=== PATIENT | male | born 1970 | race Caucasian/White ===

== ENCOUNTER 2024-04-19 11:23 | Inpatient (IN) ==
[2024-04-19] MEDS ORDERED: IOPAMIDOL 100 ML BOTTLE IV ONE (11:24)
[2024-04-19 12:05] LABS: Basophils # (Auto) 0 K/mcL (0.00-0.30); Basophils % (Auto) 0 % (0.0-2.0); Eosinophils # (Auto) 0.02 K/mcL (0.00-0.70); Eosinophils % (Auto) 0.3 % (0.0-7.0); Hematocrit 46.3 % (40.1-51.0); Hemoglobin 15.6 g/dL (13.7-17.5); Lymphocytes # (Auto) 0.62 K/mcL (1.50-4.80); Lymphocytes % (Auto) 9.5 % (15.5-49.0); Mean Cell Volume 92.2 fL (80.0-100.0); Mean Corpuscular HGB Conc 33.7 g/dL (31.0-36.0); Monocytes % (Auto) 7.7 % (1.0-12.0); Neutrophils % (Auto) 82.3 % (38.0-78.0); Platelet Count 178 K/mcL (140-440); RBC 5.02 M/mcL (4.63-6.08); Red Cell Distribution Width 15.4 % (11.5-14.5); WBC 6.5 K/mcL (4.5-11.0)
[2024-04-19 12:27] LABS: ALT/SGPT 8 U/L (<40); AST/SGOT 17 U/L (<40); Albumin 3.7 gm/dL (3.2-5.2); Albumin/Globulin Ratio 0.9 (1.0-2.3); Alkaline Phosphatase 106 U/L (39-117); Blood Urea Nitrogen 8 mg/dL (6-20); Calcium 8.8 mg/dL (8.6-10.4); Carbon Dioxide 27 mmol/L (22-30); Chloride 82 mmol/L (96-108); Globulin 3.9 gm/dL (2.2-3.7); Glomerular Filtration Rate 151; Glucose 104 mg/dL (70-105); Potassium 4.8 mmol/L (3.3-5.1); Sodium 121 mmol/L (133-145)
[2024-04-19] MEDS: KETOROLAC 15 MG/ML VIAL IV ONE (13:55)
[2024-04-19 14:10] LABS: Thyroid Stimulating Hormone 2.71 uIU/mL (0.27-5.01)
[2024-04-19] MEDS: IPRATROPIUM/ALBUTEROL 3 ML AMPUL.NEB NEB ONE (14:20)
[2024-04-19] MEDS ORDERED: MAG HYDROX/AL HYDROX/SIMETH 30 ML ORAL.SUSP PO PRN (15:10)
[2024-04-19] MEDS ORDERED: MAGNESIUM HYDROXIDE 30 ML ORAL.SUSP PO PRN (15:10)
[2024-04-19] MEDS ORDERED: ONDANSETRON 4 MG/2 ML VIAL IV PRN (15:10)
[2024-04-19] MEDS ORDERED: guaiFENesin/DEXTROMETHORPHAN 5ML UD CUP PO PRN (15:15)
[2024-04-19 15:24] LABS: Amphetamine Screen,Urine None detected; Barbiturate Screen,Urine None detected; Benzodiazepines Screen,Urine None detected; Cannabinoid Screen,Urine Suspect Positive; Cocaine Screen,Urine None detected; Fentanyl, Urine Screen None Detected; Opiate Screen,Urine None detected; Oxycodone, Urine Screen None detected; Phencyclidine Screen,Urine None detected
[2024-04-19] MEDS: cefTRIAXone 1 GM VIAL IV SCH (16:01)
[2024-04-19] MEDS: AZITHROMYCIN 500 MG in 0.9 % SODIUM CHLORIDE 250 ML IV SCH (16:02)
[2024-04-19] MEDS: ACETAMINOPHEN 325 MG TABLET PO PRN (17:24)
[2024-04-19] MEDS: oxyCODONE IR 5 MG TABLET PO PRN (17:25)
[2024-04-19] MEDS ORDERED: tiZANidine 4 MG TABLET PO PRN (19:18)
[2024-04-19] MEDS ORDERED: ALBUTEROL SULFATE 60 PUFF INHALER IH PRN (19:18)
[2024-04-19] MEDS: 0.9 % SODIUM CHLORIDE 10 ML SYRINGE IV SCH (19:59)
[2024-04-19] MEDS ORDERED: PROCHLORPERAZINE 10 MG/2 ML VIAL IV PRN (20:00)
[2024-04-19] MEDS: busPIRone 5 MG TABLET PO SCH (20:13)
[2024-04-19] MEDS: SENNOSIDES 1 TABLET PO SCH (20:13)
[2024-04-19] MEDS: QUEtiapine 100 MG TABLET PO SCH (20:13)
[2024-04-19] MEDS: GABAPENTIN 400 MG CAPSULE PO SCH (20:13)
[2024-04-19] MEDS: traZODone HCL 50 MG TABLET PO SCH (20:14)
[2024-04-19] MEDS: QUEtiapine 25 MG TABLET PO SCH (20:14)
[2024-04-19] MEDS: guaiFENesin 600 MG TAB.SR.12H PO SCH (20:14)
[2024-04-19] MEDS: IBUPROFEN 600 MG TABLET PO PRN (20:14)
[2024-04-19] MEDS: DOCUSATE SODIUM 100 MG CAPSULE PO SCH (20:14)
[2024-04-19 20:24] LABS: Blood Urea Nitrogen 8 mg/dL (6-20); Calcium 8.5 mg/dL (8.6-10.4); Carbon Dioxide 30 mmol/L (22-30); Chloride 85 mmol/L (96-108); Glomerular Filtration Rate 151; Glucose 109 mg/dL (70-105); Potassium 4.4 mmol/L (3.3-5.1); Sodium 124 mmol/L (133-145)
[2024-04-19] MEDS: BUDESONIDE 0.5 MG/2 ML AMPUL.NEB NEB SCH (20:33)
[2024-04-19] MEDS: ALBUTEROL SULFATE 2.5 MG/3 ML NEBULIZER NEB PRN (20:33)
[2024-04-19] MEDS: MUPIROCIN OINT 2% 22GM TOPICAL SCH (23:49)
[2024-04-20] MEDS: traMADol 50 MG TABLET PO PRN (01:07)
[2024-04-20] MEDS: LORazepam 0.5 MG TABLET PO ONE (07:32)
[2024-04-20 08:24] VITALS: TEMP 97.8
[2024-04-20 08:38] LABS: Blood Urea Nitrogen 7 mg/dL (6-20); Calcium 8.4 mg/dL (8.6-10.4); Carbon Dioxide 29 mmol/L (22-30); Chloride 83 mmol/L (96-108); Glomerular Filtration Rate 151; Glucose 132 mg/dL (70-105); Potassium 4.3 mmol/L (3.3-5.1); Sodium 122 mmol/L (133-145)
[2024-04-20 09:16] VITALS: O2SAT 95
[2024-04-20] MEDS: OMEPRAZOLE 20 MG CAPSULE PO SCH (10:19)
[2024-04-20] MEDS: ENOXAPARIN 40 MG/0.4 ML SYRINGE SQ SCH (10:20)
[2024-04-20] MEDS: NYSTATIN POWDER BOTTLE 15GM TOPICAL SCH (10:20)
[2024-04-20] MEDS: FLUTICASONE PROPIONATE SPRAY.NAS NS SCH (10:47)
[2024-04-20] MEDS ORDERED: SODIUM CHLORIDE 1 GM TABLET PO SCH (12:00)
[2024-04-20] MEDS ORDERED: MIRABEGRON 50 MG PO SCH (12:00)
== END 2024-04-20 13:10 | disposition left against medical advice (07) | DRG 189 ==
LOC: ED 11:23 → ICU 16:51
PROVIDERS: ADMIT Internal Medicine; ATTEND Internal Medicine

== ENCOUNTER 2024-04-21 19:26 | Inpatient (IN) ==
[2024-04-21] MEDS: 0.9 % SODIUM CHLORIDE 1,000 ML IV ONE (20:41)
[2024-04-21] MEDS: IPRATROPIUM/ALBUTEROL 3 ML AMPUL.NEB NEB ONE (20:43)
[2024-04-21 21:01] LABS: ABG Methemoglobin 0.3 % (0.4-1.5); Total Hemoglobin 15.4 gm/Dl (13.5-16.5); VBG Base Excess 5 (-2-3); VBG Oxygen Saturation 93.6 % (40.0-70.0); VBG PCO2 43.9 mmHg (41.0-51.0); VBG PH 7.45 U (7.32-7.42); VBG PO2 108.7 mmHg (25.0-40.0); VBG Total CO2 31.4 mmol/L (25.0-29.0)
[2024-04-21 21:05] LABS: Basophils # (Auto) 0.01 K/mcL (0.00-0.30); Basophils % (Auto) 0.2 % (0.0-2.0); Eosinophils # (Auto) 0 K/mcL (0.00-0.70); Eosinophils % (Auto) 0 % (0.0-7.0); Hematocrit 42.4 % (40.1-51.0); Hemoglobin 14.4 g/dL (13.7-17.5); Lymphocytes # (Auto) 0.34 K/mcL (1.50-4.80); Lymphocytes % (Auto) 5.5 % (15.5-49.0); Mean Cell Volume 91.4 fL (80.0-100.0); Mean Platelet Volume 8.7 fL (8.8-12.5); Monocytes # (Auto) 0.55 K/mcL (0.10-0.90); Monocytes % (Auto) 8.9 % (1.0-12.0); Neutrophils % (Auto) 85.1 % (38.0-78.0); Platelet Count 235 K/mcL (140-440); RBC 4.64 M/mcL (4.63-6.08); Red Cell Distribution Width 15.5 % (11.5-14.5); WBC 6.2 K/mcL (4.5-11.0)
[2024-04-21 21:26] LABS: ALT/SGPT 9 U/L (<40); AST/SGOT 20 U/L (<40); Albumin 3.3 gm/dL (3.2-5.2); Albumin/Globulin Ratio 0.9 (1.0-2.3); Alkaline Phosphatase 103 U/L (39-117); Blood Urea Nitrogen 4 mg/dL (6-20); Calcium 8.1 mg/dL (8.6-10.4); Carbon Dioxide 29 mmol/L (22-30); Chloride 85 mmol/L (96-108); Globulin 3.5 gm/dL (2.2-3.7); Glomerular Filtration Rate 151; Glucose 97 mg/dL (70-105); Potassium 4.1 mmol/L (3.3-5.1); Sodium 125 mmol/L (133-145)
[2024-04-21] MEDS: LORazepam 2 MG/ML VIAL IV PRN (21:31)
[2024-04-21] MEDS: methylPREDNISolone SOD SUCC 125 MG/2 ML VIAL IV ONE (21:45)
[2024-04-21] MEDS: LORazepam 2 MG/ML VIAL IV ONE (21:45)
[2024-04-21] MEDS: MIDAZOLAM 2 MG/2 ML VIAL IV ONE (21:53)
[2024-04-21] MEDS: ROCURONIUM 10 MG/ML ML IV ONE (22:45)
[2024-04-21] MEDS: KETAMINE 10 MG/ML ML IV ONE (22:45)
[2024-04-21] MEDS: 0.9 % SODIUM CHLORIDE 500 ML IV ONE (23:08)
[2024-04-21] MEDS: KETAMINE 100 MG/ML ML ONE (23:20)
[2024-04-21] MEDS: MIDAZOLAM 2 MG/2 ML VIAL ONE (23:23)
[2024-04-21] MEDS: DOPamine 400 MG in PREMIX 1 BAG IV SCH (23:30)
[2024-04-21] MEDS: PROPOFOL 1,000 MG in PREMIX 1 BAG IV SCH (23:43)
[2024-04-21] MEDS: PROPOFOL 100 ML IV ONE (23:43)
[2024-04-22] MEDS ORDERED: fentaNYL 100 MCG/2 ML VIAL IV PRN (00:33)
[2024-04-22] MEDS ORDERED: ONDANSETRON 4 MG/2 ML VIAL IV PRN ×2 (00:33→01:41)
[2024-04-22] MEDS ORDERED: IPRATROPIUM/ALBUTEROL 3 ML AMPUL.NEB NEB PRN (00:34)
[2024-04-22] MEDS: AZITHROMYCIN 500 MG in 0.9 % SODIUM CHLORIDE 250 ML IV ONE ×2 (01:00→02:11)
[2024-04-22] MEDS: HYDROmorphone 0.5 MG/0.5 ML SYRINGE IV PRN (01:01)
[2024-04-22 01:53] LABS: Appearance,Urine CLEAR (Clear); Bacteria,Urine FEW /hpf (0); Bilirubin,Urine Negative (Negative); Color,Urine YELLOW; Glucose,Urine (UA) Negative (Negative); Ketones,Urine 5 mg/dL (Negative); Leukocyte Esterase,Urine Negative /uL (Negative); Mucus,Urine FEW /hpf; Nitrate,Urine Negative (Negative); Protein,Urine 30 mg/dL (Negative); Specific Gravity,Urine 1.005 (1.000-1.035); Urine Amorphous Crystals FEW /hpf; Urine Blood Negative (Negative); Urine Hyaline Cast 6 /lph (0-2); Urine RBC 1 /hpf (0-3); Urine Squamous Epithelial Cell 0 /hpf (0-4); Urine WBC 7 /hpf (0-4); Urobilinogen,Urine Negative
[2024-04-22] MEDS: cefTRIAXone 2 GM in DEXTROSE 5% IN WATER 50 ML IV SCH ×2 (02:00→02:11)
[2024-04-22] MEDS: 0.9 % SODIUM CHLORIDE 250 ML IV SCH (02:11)
[2024-04-22] MEDS: cefTRIAXone 2 GM VIAL ONE (02:12)
[2024-04-22] MEDS: AZITHROMYCIN 500 MG VIAL IV ONE (02:12)
[2024-04-22] MEDS: ALBUTEROL SULFATE 2.5 MG/3 ML NEBULIZER ONE (02:13)
[2024-04-22] MEDS: PROPOFOL 100 ML IV ONE ×9 (02:44→23:11)
[2024-04-22] MEDS: cefTRIAXone 1 GM VIAL IV SCH (02:44)
[2024-04-22] MEDS: AZITHROMYCIN 500 MG in DEXTROSE 5% IN WATER 250 ML IV SCH (02:44)
[2024-04-22] MEDS: fentaNYL 100 MCG/2 ML VIAL IV PRN ×2 (02:47→11:35)
[2024-04-22] MEDS: ALBUTEROL SULFATE 2.5 MG/3 ML NEBULIZER NEB ONE (02:51)
[2024-04-22] MEDS: DEXMEDETOMIDINE 400 MCG in PREMIX 1 BAG IV SCH ×2 (03:15→15:27)
[2024-04-22] MEDS: PROPOFOL 1,000 MG in PREMIX 1 BAG IV ONE (03:40)
[2024-04-22] MEDS: DEXMEDETOMIDINE 100 ML IV ONE ×3 (03:40→23:43)
[2024-04-22] MEDS: fentaNYL 100 MCG/2 ML VIAL ONE ×3 (03:40→10:10)
[2024-04-22] MEDS: ALBUMIN HUMAN 25 GM/100 ML BAG IV ONE (04:30)
[2024-04-22] MEDS: ALBUMIN HUMAN 25 GM/100 ML BAG IV SCH (05:56)
[2024-04-22] MEDS: LACTATED RINGERS 1,000 ML IV SCH (05:56)
[2024-04-22] MEDS: 0.9 % SODIUM CHLORIDE 1,000 ML IV SCH (05:58)
[2024-04-22 06:11] LABS: Basophils # (Auto) 0 K/mcL (0.00-0.30); Basophils % (Auto) 0 % (0.0-2.0); Eosinophils # (Auto) 0 K/mcL (0.00-0.70); Eosinophils % (Auto) 0 % (0.0-7.0); Hematocrit 46.9 % (40.1-51.0); Hemoglobin 15.8 g/dL (13.7-17.5); Lymphocytes # (Auto) 0.29 K/mcL (1.50-4.80); Lymphocytes % (Auto) 7.6 % (15.5-49.0); Mean Cell Volume 92.5 fL (80.0-100.0); Mean Corpuscular HGB Conc 33.7 g/dL (31.0-36.0); Mean Platelet Volume 8.7 fL (8.8-12.5); Monocytes # (Auto) 0.16 K/mcL (0.10-0.90); Monocytes % (Auto) 4.2 % (1.0-12.0); Neutrophils % (Auto) 87.7 % (38.0-78.0); Platelet Count 226 K/mcL (140-440); RBC 5.07 M/mcL (4.63-6.08); Red Cell Distribution Width 15.6 % (11.5-14.5); WBC 3.8 K/mcL (4.5-11.0)
[2024-04-22 06:44] LABS: Blood Urea Nitrogen 6 mg/dL (6-20); Calcium 8.6 mg/dL (8.6-10.4); Carbon Dioxide 24 mmol/L (22-30); Chloride 87 mmol/L (96-108); Glomerular Filtration Rate 134; Glucose 129 mg/dL (70-105); Potassium 3.5 mmol/L (3.3-5.1); Sodium 131 mmol/L (133-145)
[2024-04-22] MEDS: 0.9 % SODIUM CHLORIDE 10 ML SYRINGE IV SCH (07:58)
[2024-04-22] MEDS: CHLORHEXIDINE GLUCONATE 15 ML UDC SWABMOUTH SCH ×2 (08:09)
[2024-04-22] MEDS: ENOXAPARIN 40 MG/0.4 ML SYRINGE SQ SCH (08:09)
[2024-04-22] MEDS: LORazepam 2 MG/ML VIAL IV PRN (08:18)
[2024-04-22] MEDS ORDERED: FAMOTIDINE/PF 20 MG/2 ML VIAL IV SCH ×2 (09:00)
[2024-04-22] MEDS: FAMOTIDINE/PF 20 MG/2 ML VIAL IV SCH (09:13)
[2024-04-22] MEDS: ACETYLCYSTEINE 800 MG/4 ML VIAL ONE (10:08)
[2024-04-22] MEDS: ACETYLCYSTEINE 800 MG/4 ML VIAL NEB SCH (10:09)
[2024-04-22] MEDS: IPRATROPIUM/ALBUTEROL 3 ML AMPUL.NEB NEB PRN (10:09)
[2024-04-22] MEDS: FUROSEMIDE 40 MG/4 ML VIAL IV SCH (15:48)
[2024-04-22] MEDS: AZITHROMYCIN 500 MG in 0.9 % SODIUM CHLORIDE 250 ML IV SCH (16:38)
[2024-04-22] MEDS: POTASSIUM CHLORIDE 10 MEQ/100 ML BAG IV SCH (21:24)
[2024-04-23 06:31] LABS: Basophils # (Auto) 0.02 K/mcL (0.00-0.30); Basophils % (Auto) 0.5 % (0.0-2.0); Eosinophils # (Auto) 0.02 K/mcL (0.00-0.70); Eosinophils % (Auto) 0.5 % (0.0-7.0); Hematocrit 40.9 % (40.1-51.0); Hemoglobin 13.7 g/dL (13.7-17.5); Lymphocytes # (Auto) 1.31 K/mcL (1.50-4.80); Lymphocytes % (Auto) 30.6 % (15.5-49.0); Mean Cell Volume 93.4 fL (80.0-100.0); Mean Corpuscular HGB Conc 33.5 g/dL (31.0-36.0); Mean Platelet Volume 8.6 fL (8.8-12.5); Monocytes # (Auto) 0.78 K/mcL (0.10-0.90); Monocytes % (Auto) 18.2 % (1.0-12.0); Platelet Count 171 K/mcL (140-440); RBC 4.38 M/mcL (4.63-6.08); Red Cell Distribution Width 15.6 % (11.5-14.5); WBC 4.3 K/mcL (4.5-11.0)
[2024-04-23 06:50] LABS: ALT/SGPT 6 U/L (<40); AST/SGOT 19 U/L (<40); Albumin 3.9 gm/dL (3.2-5.2); Albumin/Globulin Ratio 1.4 (1.0-2.3); Alkaline Phosphatase 69 U/L (39-117); Bilirubin,Direct 0.6 mg/dL (<0.3); Blood Urea Nitrogen 6 mg/dL (6-20); Calcium 8.6 mg/dL (8.6-10.4); Carbon Dioxide 27 mmol/L (22-30); Chloride 90 mmol/L (96-108); Globulin 2.8 gm/dL (2.2-3.7); Glomerular Filtration Rate 134; Glucose 107 mg/dL (70-105); Lactate Dehydrogenase 140 U/L (135-225); Phosphorous 1.8 mg/dL (2.5-4.5); Potassium 2.4 mmol/L (3.3-5.1); Sodium 132 mmol/L (133-145); Triglycerides 130 mg/dL (<150); Uric Acid 3.1 mg/dL (2.5-8.0)
[2024-04-23] MEDS: PROPOFOL 100 ML IV ONE ×5 (07:31→23:18)
[2024-04-23] MEDS: MAGNESIUM SULFATE 2 GM/50 ML BAG IV ONE (08:26)
[2024-04-23] MEDS: POTASSIUM CHLORIDE 10 MEQ/100 ML BAG IV SCH ×2 (08:39→12:24)
[2024-04-23] MEDS: DEXMEDETOMIDINE 100 ML IV ONE ×3 (08:47→20:12)
[2024-04-23] MEDS: POTASSIUM CHLORIDE 20 MEQ in DEXTROSE 5% IN WATER 250 ML IV SCH (11:25)
[2024-04-23] MEDS: 0.9 % SODIUM CHLORIDE 1,000 ML IV SCH (17:30)
[2024-04-23 19:39] LABS: Blood Urea Nitrogen 7 mg/dL (6-20); Calcium 8.6 mg/dL (8.6-10.4); Carbon Dioxide 26 mmol/L (22-30); Chloride 92 mmol/L (96-108); Glomerular Filtration Rate 134; Glucose 107 mg/dL (70-105); Potassium 4.2 mmol/L (3.3-5.1); Sodium 129 mmol/L (133-145)
[2024-04-23] MEDS: METOCLOPRAMIDE 10 MG/2 ML VIAL IV SCH (20:57)
[2024-04-24] MEDS: DEXMEDETOMIDINE 100 ML IV ONE ×3 (00:23→09:36)
[2024-04-24] MEDS: PROPOFOL 100 ML IV ONE ×2 (03:26→07:00)
[2024-04-24 06:08] LABS: Basophils # (Auto) 0.03 K/mcL (0.00-0.30); Basophils % (Auto) 0.5 % (0.0-2.0); Eosinophils # (Auto) 0.05 K/mcL (0.00-0.70); Eosinophils % (Auto) 0.8 % (0.0-7.0); Hematocrit 40.7 % (40.1-51.0); Hemoglobin 13.6 g/dL (13.7-17.5); Lymphocytes # (Auto) 1.27 K/mcL (1.50-4.80); Lymphocytes % (Auto) 19.7 % (15.5-49.0); Mean Cell Volume 94.7 fL (80.0-100.0); Mean Corpuscular HGB Conc 33.4 g/dL (31.0-36.0); Mean Platelet Volume 9.4 fL (8.8-12.5); Monocytes # (Auto) 0.82 K/mcL (0.10-0.90); Monocytes % (Auto) 12.7 % (1.0-12.0); Platelet Count 162 K/mcL (140-440); Red Cell Distribution Width 15.6 % (11.5-14.5); WBC 6.5 K/mcL (4.5-11.0)
[2024-04-24 06:17] LABS: Blood Urea Nitrogen 7 mg/dL (6-20); Calcium 8.1 mg/dL (8.6-10.4); Carbon Dioxide 24 mmol/L (22-30); Chloride 88 mmol/L (96-108); Glomerular Filtration Rate 134; Glucose 182 mg/dL (70-105); Potassium 3.5 mmol/L (3.3-5.1); Sodium 125 mmol/L (133-145)
[2024-04-24] MEDS: POTASSIUM CHLORIDE 10 MEQ/100 ML BAG IV SCH (13:16)
[2024-04-24] MEDS: PIPERACILLIN SODIUM/TAZOBACTAM 4.5 GM in DEXTROSE 5% IN WATER 100 ML IV SCH ×2 (13:16→17:06)
[2024-04-24] MEDS: MEROPENEM 1 GM in 0.9 % SODIUM CHLORIDE 50 ML IV SCH (13:51)
[2024-04-25 06:19] LABS: Phosphorous 3.8 mg/dL (2.5-4.5)
[2024-04-25 06:20] LABS: Basophils # (Auto) 0.03 K/mcL (0.00-0.30); Basophils % (Auto) 0.3 % (0.0-2.0); Eosinophils # (Auto) 0.06 K/mcL (0.00-0.70); Eosinophils % (Auto) 0.6 % (0.0-7.0); Hematocrit 43.1 % (40.1-51.0); Hemoglobin 13.7 g/dL (13.7-17.5); Lymphocytes # (Auto) 0.77 K/mcL (1.50-4.80); Lymphocytes % (Auto) 8.1 % (15.5-49.0); Mean Cell Volume 96.9 fL (80.0-100.0); Mean Corpuscular HGB Conc 31.8 g/dL (31.0-36.0); Mean Platelet Volume 8.9 fL (8.8-12.5); Monocytes # (Auto) 1.14 K/mcL (0.10-0.90); Monocytes % (Auto) 11.9 % (1.0-12.0); Neutrophils % (Auto) 78.9 % (38.0-78.0); Platelet Count 206 K/mcL (140-440); RBC 4.45 M/mcL (4.63-6.08); Red Cell Distribution Width 15.3 % (11.5-14.5); WBC 9.6 K/mcL (4.5-11.0)
[2024-04-25 07:13] LABS: Blood Urea Nitrogen 9 mg/dL (6-20); Calcium 8.7 mg/dL (8.6-10.4); Carbon Dioxide 29 mmol/L (22-30); Chloride 96 mmol/L (96-108); Glomerular Filtration Rate 134; Glucose 88 mg/dL (70-105); Potassium 2.7 mmol/L (3.3-5.1); Sodium 138 mmol/L (133-145)
[2024-04-25] MEDS: POTASSIUM CHLORIDE 10 MEQ/100 ML BAG IV SCH ×2 (08:23→14:29)
[2024-04-25] MEDS ORDERED: VANCOMYCIN 1,000 MG in 0.9 % SODIUM CHLORIDE 250 ML IV SCH (10:15)
[2024-04-25] MEDS ORDERED: VANCOMYCIN PER PHARMACY IV SCH (10:30)
[2024-04-25] MEDS: VANCOMYCIN 1,500 MG in 0.9 % SODIUM CHLORIDE 500 ML IV SCH (11:17)
[2024-04-25] MEDS: FUROSEMIDE 40 MG/4 ML VIAL IV SCH (14:14)
[2024-04-25] MEDS: HYDROcodone/APAP 5/325MG TABLET PO PRN (20:00)
[2024-04-25] MEDS: hydrALAZINE 20 MG/ML VIAL ONE (20:28)
[2024-04-25] MEDS: hydrALAZINE 20 MG/ML VIAL IV PRN (20:28)
[2024-04-26 05:45] LABS: Basophils # (Auto) 0.04 K/mcL (0.00-0.30); Basophils % (Auto) 0.4 % (0.0-2.0); Hematocrit 47.9 % (40.1-51.0); Hemoglobin 15.2 g/dL (13.7-17.5); Lymphocytes # (Auto) 1.21 K/mcL (1.50-4.80); Lymphocytes % (Auto) 12.5 % (15.5-49.0); Mean Cell Volume 97.4 fL (80.0-100.0); Mean Corpuscular HGB Conc 31.7 g/dL (31.0-36.0); Mean Platelet Volume 9.1 fL (8.8-12.5); Monocytes # (Auto) 1.21 K/mcL (0.10-0.90); Monocytes % (Auto) 12.5 % (1.0-12.0); Neutrophils % (Auto) 73.3 % (38.0-78.0); Platelet Count 245 K/mcL (140-440); RBC 4.92 M/mcL (4.63-6.08); WBC 9.7 K/mcL (4.5-11.0)
[2024-04-26 06:05] LABS: Blood Urea Nitrogen 8 mg/dL (6-20); Calcium 9.4 mg/dL (8.6-10.4); Carbon Dioxide 27 mmol/L (22-30); Chloride 91 mmol/L (96-108); Glomerular Filtration Rate 134; Glucose 109 mg/dL (70-105); Potassium 3.3 mmol/L (3.3-5.1); Sodium 131 mmol/L (133-145)
[2024-04-26] MEDS: hydrALAZINE 20 MG/ML VIAL IV PRN (07:04)
[2024-04-26] MEDS: ACETAMINOPHEN 325 MG TABLET PO PRN (14:47)
[2024-04-27] MEDS: ONDANSETRON 4 MG/2 ML VIAL IV PRN (00:31)
[2024-04-27 06:20] LABS: Basophils # (Auto) 0.03 K/mcL (0.00-0.30); Basophils % (Auto) 0.3 % (0.0-2.0); Eosinophils # (Auto) 0.02 K/mcL (0.00-0.70); Eosinophils % (Auto) 0.2 % (0.0-7.0); Hematocrit 49.2 % (40.1-51.0); Hemoglobin 16.3 g/dL (13.7-17.5); Lymphocytes # (Auto) 0.87 K/mcL (1.50-4.80); Lymphocytes % (Auto) 9.3 % (15.5-49.0); Mean Cell Volume 94.3 fL (80.0-100.0); Mean Corpuscular HGB Conc 33.1 g/dL (31.0-36.0); Mean Platelet Volume 9.7 fL (8.8-12.5); Monocytes % (Auto) 14.9 % (1.0-12.0); Neutrophils % (Auto) 75.1 % (38.0-78.0); Platelet Count 264 K/mcL (140-440); RBC 5.22 M/mcL (4.63-6.08); Red Cell Distribution Width 14.7 % (11.5-14.5); WBC 9.4 K/mcL (4.5-11.0)
[2024-04-27 06:51] LABS: ALT/SGPT 8 U/L (<40); AST/SGOT 26 U/L (<40); Albumin 4.2 gm/dL (3.2-5.2); Albumin/Globulin Ratio 1.2 (1.0-2.3); Alkaline Phosphatase 66 U/L (39-117); Bilirubin,Total 2.3 mg/dL (0.1-1.0); Blood Urea Nitrogen 12 mg/dL (6-20); Calcium 9.3 mg/dL (8.6-10.4); Carbon Dioxide 28 mmol/L (22-30); Chloride 89 mmol/L (96-108); Globulin 3.5 gm/dL (2.2-3.7); Glomerular Filtration Rate 122; Glucose 111 mg/dL (70-105); Potassium 2.9 mmol/L (3.3-5.1); Sodium 133 mmol/L (133-145)
[2024-04-27] MEDS ORDERED: ALBUTEROL SULFATE 60 PUFF INHALER INH PRN (07:57)
[2024-04-27] MEDS ORDERED: SODIUM CHLORIDE IRRIG SOLUTION 500 ML BOTTLE IRR PRN (08:00)
[2024-04-27] MEDS: PANTOPRAZOLE 40 MG VIAL IV SCH (08:25)
[2024-04-27] MEDS: POTASSIUM CHLORIDE 20 MEQ TABLET PO SCH ×2 (08:26→18:01)
[2024-04-27] MEDS: busPIRone 5 MG TABLET PO SCH (08:49)
[2024-04-27] MEDS: OMEPRAZOLE 20 MG CAPSULE PO SCH (08:49)
[2024-04-27] MEDS: GABAPENTIN 400 MG CAPSULE PO SCH (08:49)
[2024-04-27] MEDS: SERTRALINE 100 MG TABLET PO SCH (08:50)
[2024-04-27] MEDS: POTASSIUM CHLORIDE 40 MEQ in DEXTROSE 5% IN WATER 500 ML IV ONE (08:50)
[2024-04-27] MEDS: guaiFENesin 600 MG TAB.SR.12H PO SCH (08:50)
[2024-04-27] MEDS: ACETIC ACID 0.25% IR SCH (08:50)
[2024-04-27] MEDS: SENNOSIDES 1 TABLET PO SCH (08:50)
[2024-04-27] MEDS: FLUTICASONE PROPIONATE SPRAY.NAS NS SCH (08:50)
[2024-04-27] MEDS: SPIRONOLACTONE 25 MG TABLET PO SCH (08:50)
[2024-04-27] MEDS: MOXIFLOXACIN 400 MG PO SCH (09:31)
[2024-04-27] MEDS: NYSTATIN POWDER BOTTLE 15GM TOPICAL SCH (09:31)
[2024-04-27] MEDS: 0.9 % SODIUM CHLORIDE 1,000 ML IV SCH (10:40)
[2024-04-27] MEDS: MUPIROCIN OINT 2% 22GM TOPICAL SCH (11:47)
[2024-04-27] MEDS: MAGNESIUM SULFATE 2 GM/50 ML BAG IV SCH (11:47)
[2024-04-27] MEDS: MIRABEGRON 50 MG PO SCH (12:22)
[2024-04-27] MEDS: SODIUM CHLORIDE 1 GM TABLET PO SCH (12:35)
[2024-04-27] MEDS: 0.9 % SODIUM CHLORIDE 1,000 ML IV ONE (12:42)
[2024-04-27] MEDS: NOREPINEPHRINE 250 ML IV SCH (14:41)
[2024-04-27] MEDS: FUROSEMIDE 20 MG TABLET PO SCH (16:33)
[2024-04-27] MEDS: POTASSIUM CHLORIDE 20 MEQ PACKET PO SCH (18:58)
[2024-04-27] MEDS: QUEtiapine 25 MG TABLET PO SCH (20:16)
[2024-04-27] MEDS: traZODone HCL 50 MG TABLET PO SCH (20:16)
[2024-04-27] MEDS: QUEtiapine 100 MG TABLET PO SCH (20:16)
[2024-04-28 06:48] LABS: Basophils # (Auto) 0.07 K/mcL (0.00-0.30); Basophils % (Auto) 0.6 % (0.0-2.0); Eosinophils # (Auto) 0.18 K/mcL (0.00-0.70); Eosinophils % (Auto) 1.5 % (0.0-7.0); Hematocrit 43.6 % (40.1-51.0); Hemoglobin 14.1 g/dL (13.7-17.5); Lymphocytes % (Auto) 11.4 % (15.5-49.0); Mean Cell Volume 97.1 fL (80.0-100.0); Mean Corpuscular HGB Conc 32.3 g/dL (31.0-36.0); Mean Platelet Volume 9.4 fL (8.8-12.5); Monocytes # (Auto) 1.79 K/mcL (0.10-0.90); Monocytes % (Auto) 14.6 % (1.0-12.0); Neutrophils % (Auto) 71.7 % (38.0-78.0); Platelet Count 240 K/mcL (140-440); RBC 4.49 M/mcL (4.63-6.08); Red Cell Distribution Width 14.8 % (11.5-14.5); WBC 12.3 K/mcL (4.5-11.0)
[2024-04-28 07:04] LABS: ALT/SGPT 8 U/L (<40); AST/SGOT 19 U/L (<40); Albumin 3.8 gm/dL (3.2-5.2); Albumin/Globulin Ratio 1.3 (1.0-2.3); Alkaline Phosphatase 52 U/L (39-117); Bilirubin,Total 1.4 mg/dL (0.1-1.0); Blood Urea Nitrogen 11 mg/dL (6-20); Calcium 9.1 mg/dL (8.6-10.4); Carbon Dioxide 27 mmol/L (22-30); Chloride 97 mmol/L (96-108); Glomerular Filtration Rate 122; Glucose 123 mg/dL (70-105); Potassium 2.6 mmol/L (3.3-5.1); Sodium 136 mmol/L (133-145)
[2024-04-28 07:25] LABS: Vancomycin,Random 15.3 ug/mL
[2024-04-28] MEDS: POTASSIUM CHLORIDE 10 MEQ/100 ML BAG IV SCH (10:13)
[2024-04-28] MEDS: VANCOMYCIN 1,000 MG in 0.9 % SODIUM CHLORIDE 250 ML IV SCH (10:40)
[2024-04-28] MEDS: 0.9 % SODIUM CHLORIDE 250 ML IV SCH (16:09)
[2024-04-28] MEDS ORDERED: POTASSIUM CHLORIDE 20 MEQ PACKET PO SCH (17:30)
[2024-04-28] MEDS: POTASSIUM CHLORIDE 20 MEQ PACKET PO SCH (17:33)
[2024-04-28] MEDS: POTASSIUM CHLORIDE 40 MEQ in DEXTROSE 5% IN WATER 500 ML IV ONE (19:01)
[2024-04-29 08:04] LABS: Basophils # (Auto) 0.05 K/mcL (0.00-0.30); Basophils % (Auto) 0.7 % (0.0-2.0); Eosinophils # (Auto) 0.24 K/mcL (0.00-0.70); Eosinophils % (Auto) 3.1 % (0.0-7.0); Hemoglobin 12.4 g/dL (13.7-17.5); Lymphocytes # (Auto) 0.77 K/mcL (1.50-4.80); Mean Cell Volume 100.3 fL (80.0-100.0); Mean Platelet Volume 8.9 fL (8.8-12.5); Monocytes # (Auto) 0.86 K/mcL (0.10-0.90); Monocytes % (Auto) 11.2 % (1.0-12.0); Neutrophils % (Auto) 74.9 % (38.0-78.0); Platelet Count 157 K/mcL (140-440); RBC 3.99 M/mcL (4.63-6.08); Red Cell Distribution Width 14.9 % (11.5-14.5); WBC 7.7 K/mcL (4.5-11.0)
[2024-04-29 08:27] LABS: ALT/SGPT 8 U/L (<40); AST/SGOT 19 U/L (<40); Albumin 3.7 gm/dL (3.2-5.2); Albumin/Globulin Ratio 1.4 (1.0-2.3); Alkaline Phosphatase 44 U/L (39-117); Bilirubin,Total 0.8 mg/dL (0.1-1.0); Blood Urea Nitrogen 9 mg/dL (6-20); Calcium 9.1 mg/dL (8.6-10.4); Carbon Dioxide 32 mmol/L (22-30); Chloride 101 mmol/L (96-108); Globulin 2.7 gm/dL (2.2-3.7); Glomerular Filtration Rate 122; Glucose 100 mg/dL (70-105); Potassium 2.8 mmol/L (3.3-5.1); Sodium 141 mmol/L (133-145)
[2024-04-29] MEDS: POTASSIUM CHLORIDE 10 MEQ/100 ML BAG IV SCH (09:38)
[2024-04-29] MEDS: POTASSIUM CHLORIDE 40 MEQ in DEXTROSE 5% IN WATER 500 ML IV ONE (11:22)
[2024-04-29] MEDS: traMADol 50 MG TABLET PO PRN (17:15)
[2024-04-29] MEDS: tiZANidine 4 MG TABLET PO PRN (17:15)
[2024-04-30 06:43] LABS: Basophils # (Auto) 0.05 K/mcL (0.00-0.30); Basophils % (Auto) 0.8 % (0.0-2.0); Eosinophils # (Auto) 0.31 K/mcL (0.00-0.70); Eosinophils % (Auto) 4.8 % (0.0-7.0); Hematocrit 38.2 % (40.1-51.0); Hemoglobin 11.9 g/dL (13.7-17.5); Lymphocytes # (Auto) 0.92 K/mcL (1.50-4.80); Lymphocytes % (Auto) 14.2 % (15.5-49.0); Mean Cell Volume 101.3 fL (80.0-100.0); Mean Corpuscular HGB Conc 31.2 g/dL (31.0-36.0); Mean Platelet Volume 9.7 fL (8.8-12.5); Monocytes # (Auto) 0.78 K/mcL (0.10-0.90); Platelet Count 161 K/mcL (140-440); RBC 3.77 M/mcL (4.63-6.08); Red Cell Distribution Width 14.6 % (11.5-14.5); WBC 6.5 K/mcL (4.5-11.0)
[2024-04-30 06:46] LABS: ALT/SGPT 9 U/L (<40); AST/SGOT 17 U/L (<40); Albumin 3.6 gm/dL (3.2-5.2); Albumin/Globulin Ratio 1.3 (1.0-2.3); Alkaline Phosphatase 41 U/L (39-117); Bilirubin,Total 0.7 mg/dL (0.1-1.0); Blood Urea Nitrogen 7 mg/dL (6-20); Carbon Dioxide 31 mmol/L (22-30); Chloride 98 mmol/L (96-108); Globulin 2.7 gm/dL (2.2-3.7); Glomerular Filtration Rate 134; Glucose 102 mg/dL (70-105); Potassium 3.4 mmol/L (3.3-5.1); Sodium 138 mmol/L (133-145)
[2024-04-30] MEDS: IBUPROFEN 800 MG TABLET PO PRN (07:39)
[2024-05-01 06:11] LABS: Basophils # (Auto) 0.05 K/mcL (0.00-0.30); Basophils % (Auto) 0.7 % (0.0-2.0); Eosinophils # (Auto) 0.23 K/mcL (0.00-0.70); Eosinophils % (Auto) 3.1 % (0.0-7.0); Hematocrit 38.6 % (40.1-51.0); Hemoglobin 12.2 g/dL (13.7-17.5); Lymphocytes % (Auto) 13.5 % (15.5-49.0); Mean Cell Volume 99.5 fL (80.0-100.0); Mean Corpuscular HGB Conc 31.6 g/dL (31.0-36.0); Mean Platelet Volume 9.8 fL (8.8-12.5); Monocytes # (Auto) 0.75 K/mcL (0.10-0.90); Monocytes % (Auto) 10.1 % (1.0-12.0); Neutrophils % (Auto) 72.5 % (38.0-78.0); Platelet Count 188 K/mcL (140-440); RBC 3.88 M/mcL (4.63-6.08); Red Cell Distribution Width 14.2 % (11.5-14.5); WBC 7.4 K/mcL (4.5-11.0)
[2024-05-01 06:34] LABS: ALT/SGPT 8 U/L (<40); AST/SGOT 15 U/L (<40); Albumin 3.8 gm/dL (3.2-5.2); Albumin/Globulin Ratio 1.4 (1.0-2.3); Alkaline Phosphatase 44 U/L (39-117); Bilirubin,Direct 0.4 mg/dL (<0.3); Bilirubin,Total 0.8 mg/dL (0.1-1.0); Blood Urea Nitrogen 5 mg/dL (6-20); Calcium 9.3 mg/dL (8.6-10.4); Carbon Dioxide 34 mmol/L (22-30); Chloride 94 mmol/L (96-108); Globulin 2.8 gm/dL (2.2-3.7); Glomerular Filtration Rate 134; Glucose 90 mg/dL (70-105); Lactate Dehydrogenase 128 U/L (135-225); Phosphorous 3.1 mg/dL (2.5-4.5); Potassium 3.5 mmol/L (3.3-5.1); Sodium 137 mmol/L (133-145); Triglycerides 81 mg/dL (<150); Uric Acid 2.7 mg/dL (2.5-8.0)
[2024-05-01] MEDS: POTASSIUM CHLORIDE 20 MEQ TABLET PO SCH (10:41)
[2024-05-02 10:18] VITALS: O2SAT 92
[2024-05-02 15:17] VITALS: TEMP 97.1
[2024-05-02] MEDS ORDERED: VANCOMYCIN 1,000 MG in 0.9 % SODIUM CHLORIDE 250 ML IV SCH (21:00)
== END 2024-05-02 12:50 | disposition home or self-care (01) | DRG 208 ==
LOC: ED 19:26 → ICU 04-22 01:25
PROVIDERS: ADMIT Internal Medicine; ATTEND Internal Medicine

== ENCOUNTER 2024-06-16 10:58 | Inpatient (IN) ==
[2024-06-16] MEDS: 0.9 % SODIUM CHLORIDE 2,330 ML IV ONE (11:25)
[2024-06-16] MEDS: PIPERACILLIN SODIUM/TAZOBACTAM 3.375 GM in DEXTROSE 5% IN WATER 50 ML IV SCH (12:02)
[2024-06-16 12:15] LABS: Basophils # (Auto) 0.05 K/mcL (0.00-0.30); Basophils % (Auto) 1.1 % (0.0-2.0); Eosinophils # (Auto) 0.13 K/mcL (0.00-0.70); Eosinophils % (Auto) 2.8 % (0.0-7.0); Hematocrit 32.7 % (40.1-51.0); Hemoglobin 10.5 g/dL (13.7-17.5); INR 1.1 (0.9-1.1); Lymphocytes # (Auto) 0.73 K/mcL (1.50-4.80); Lymphocytes % (Auto) 15.8 % (15.5-49.0); Mean Cell Volume 96.2 fL (80.0-100.0); Mean Corpuscular HGB Conc 32.1 g/dL (31.0-36.0); Mean Platelet Volume 8.8 fL (8.8-12.5); Monocytes # (Auto) 0.75 K/mcL (0.10-0.90); Monocytes % (Auto) 16.2 % (1.0-12.0); Neutrophils % (Auto) 63.9 % (38.0-78.0); Platelet Count 269 K/mcL (140-440); Prothrombin Time 14.4 sec (11.9-14.5); Red Cell Distribution Width 15.2 % (11.5-14.5); WBC 4.6 K/mcL (4.5-11.0)
[2024-06-16 12:24] LABS: ALT/SGPT < 5 U/L (<40); AST/SGOT 9 U/L (<40); Albumin 2.8 gm/dL (3.2-5.2); Albumin/Globulin Ratio 0.9 (1.0-2.3); Alkaline Phosphatase 72 U/L (39-117); Bilirubin,Total 0.5 mg/dL (0.1-1.0); Blood Urea Nitrogen 6 mg/dL (6-20); Calcium 8.4 mg/dL (8.6-10.4); Carbon Dioxide 29 mmol/L (22-30); Chloride 92 mmol/L (96-108); Globulin 3.1 gm/dL (2.2-3.7); Glomerular Filtration Rate 178; Glucose 139 mg/dL (70-105); Potassium 3.4 mmol/L (3.3-5.1); Sodium 129 mmol/L (133-145)
[2024-06-16 12:31] LABS: Appearance,Urine Cloudy (Clear); Bacteria,Urine Few /hpf (0); Bilirubin,Urine Negative (Negative); Calcium Oxalate Crystals,Urine Few /hpf; Color,Urine Yellow; Glucose,Urine (UA) Negative (Negative); Ketones,Urine Negative (Negative); Leukocyte Esterase,Urine Moderate /uL (Negative); Nitrate,Urine Positive (Negative); Protein,Urine Negative (Negative); Specific Gravity,Urine 1.015 (1.000-1.035); Urine Blood Negative ery/mcL (Negative); Urine Budding Yeast Many /hpf; Urine RBC 2 /hpf (0-3); Urine Squamous Epithelial Cell 0 /hpf (0-4); Urine WBC 41 /hpf (0-4); Urobilinogen,Urine Normal
[2024-06-16] MEDS: VANCOMYCIN 1,500 MG in 0.9 % SODIUM CHLORIDE 500 ML IV ONE (12:33)
[2024-06-16] MEDS ORDERED: VANCOMYCIN PER PHARMACY IV SCH (15:27)
[2024-06-16] MEDS ORDERED: ONDANSETRON 4 MG/2 ML VIAL IV PRN (15:29)
[2024-06-16 15:53] LABS: C-Reactive Protein 2.36 mg/dL (0.03-0.80)
[2024-06-16] MEDS ORDERED: PIPERACILLIN SODIUM/TAZOBACTAM 4.5 GM in DEXTROSE 5% IN WATER 100 ML IV SCH (16:00)
[2024-06-16] MEDS: PIPERACILLIN SODIUM/TAZOBACTAM 4.5 GM in 0.9 % SODIUM CHLORIDE 100 ML IV SCH (17:48)
[2024-06-16] MEDS: PIPERACILLIN SODIUM/TAZOBACTAM 4.5 GM in DEXTROSE 5% IN WATER 50 ML IV SCH (17:49)
[2024-06-16] MEDS: ACETAMINOPHEN 325 MG TABLET PO PRN (20:00)
[2024-06-16] MEDS: SENNOSIDES 1 TABLET PO SCH (20:02)
[2024-06-16] MEDS: morphine 4 MG/ML VIAL IV ONE (21:34)
[2024-06-16] MEDS: 0.9 % SODIUM CHLORIDE 10 ML SYRINGE IV SCH (21:35)
[2024-06-16] MEDS: VANCOMYCIN 1,000 MG in 0.9 % SODIUM CHLORIDE 250 ML IV SCH (23:41)
[2024-06-17] MEDS: HYDROcodone/APAP 5/325MG TABLET PO PRN (00:04)
[2024-06-17] MEDS: HYDROcodone/APAP 5/325MG TABLET PO ONE ×2 (00:05→06:48)
[2024-06-17] MEDS: IBUPROFEN 800 MG TABLET PO PRN (00:39)
[2024-06-17 06:45] LABS: Basophils # (Auto) 0.09 K/mcL (0.00-0.30); Basophils % (Auto) 1.5 % (0.0-2.0); Eosinophils # (Auto) 0.28 K/mcL (0.00-0.70); Eosinophils % (Auto) 4.5 % (0.0-7.0); Hematocrit 34.9 % (40.1-51.0); Hemoglobin 11.3 g/dL (13.7-17.5); Lymphocytes # (Auto) 0.58 K/mcL (1.50-4.80); Lymphocytes % (Auto) 9.4 % (15.5-49.0); Mean Cell Volume 96.7 fL (80.0-100.0); Mean Corpuscular HGB Conc 32.4 g/dL (31.0-36.0); Mean Platelet Volume 8.9 fL (8.8-12.5); Monocytes % (Auto) 11.3 % (1.0-12.0); Neutrophils % (Auto) 73.3 % (38.0-78.0); Platelet Count 262 K/mcL (140-440); RBC 3.61 M/mcL (4.63-6.08); Red Cell Distribution Width 15.1 % (11.5-14.5); WBC 6.2 K/mcL (4.5-11.0)
[2024-06-17 06:50] LABS: ALT/SGPT 12 U/L (<40); AST/SGOT 27 U/L (<40); Albumin/Globulin Ratio 0.9 (1.0-2.3); Alkaline Phosphatase 115 U/L (39-117); Bilirubin,Total 0.8 mg/dL (0.1-1.0); Blood Urea Nitrogen 7 mg/dL (6-20); Calcium 8.8 mg/dL (8.6-10.4); Carbon Dioxide 27 mmol/L (22-30); Chloride 95 mmol/L (96-108); Globulin 3.5 gm/dL (2.2-3.7); Glomerular Filtration Rate 178; Glucose 85 mg/dL (70-105); Potassium 3.5 mmol/L (3.3-5.1); Sodium 131 mmol/L (133-145)
[2024-06-17] MEDS ORDERED: SENNOSIDES 1 TABLET PO SCH (09:00)
[2024-06-17] MEDS: SPIRONOLACTONE 25 MG TABLET PO SCH (11:04)
[2024-06-17] MEDS: busPIRone 5 MG TABLET PO SCH (11:06)
[2024-06-17] MEDS: MUPIROCIN OINT 2% 22GM TOPICAL SCH (11:06)
[2024-06-17] MEDS: ENOXAPARIN 40 MG/0.4 ML SYRINGE SQ SCH (11:08)
[2024-06-17] MEDS: OMEPRAZOLE 20 MG CAPSULE PO SCH (11:10)
[2024-06-17] MEDS: NYSTATIN POWDER BOTTLE 15GM TOPICAL SCH (11:10)
[2024-06-17] MEDS: GABAPENTIN 400 MG CAPSULE PO SCH (11:11)
[2024-06-17] MEDS: SERTRALINE 100 MG TABLET PO SCH (11:11)
[2024-06-17] MEDS: VANCOMYCIN 1,000 MG in 0.9 % SODIUM CHLORIDE 250 ML IV SCH (11:18)
[2024-06-17] MEDS: FLUTICASONE PROPIONATE SPRAY.NAS NS SCH (12:26)
[2024-06-17] MEDS: SODIUM CHLORIDE 1 GM TABLET PO SCH (12:43)
[2024-06-17] MEDS: tiZANidine 4 MG TABLET PO PRN (12:48)
[2024-06-17] MEDS ORDERED: SODIUM CHLORIDE IRRIG SOLUTION 500 ML BOTTLE IRR PRN (15:32)
[2024-06-17] MEDS: SIMETHICONE 80 MG TAB.CHEW CHEWED PRN (16:01)
[2024-06-17] MEDS: QUEtiapine 25 MG TABLET PO SCH (20:42)
[2024-06-17] MEDS: QUEtiapine 100 MG TABLET PO SCH (20:42)
[2024-06-17] MEDS: traZODone HCL 50 MG TABLET PO SCH (20:43)
[2024-06-18 06:37] LABS: Basophils # (Auto) 0.03 K/mcL (0.00-0.30); Basophils % (Auto) 0.7 % (0.0-2.0); Eosinophils # (Auto) 0.21 K/mcL (0.00-0.70); Eosinophils % (Auto) 5.1 % (0.0-7.0); Hematocrit 33.1 % (40.1-51.0); Hemoglobin 10.5 g/dL (13.7-17.5); Lymphocytes # (Auto) 0.61 K/mcL (1.50-4.80); Lymphocytes % (Auto) 14.9 % (15.5-49.0); Mean Cell Volume 97.4 fL (80.0-100.0); Mean Corpuscular HGB Conc 31.7 g/dL (31.0-36.0); Mean Platelet Volume 8.9 fL (8.8-12.5); Monocytes # (Auto) 0.57 K/mcL (0.10-0.90); Monocytes % (Auto) 13.9 % (1.0-12.0); Neutrophils % (Auto) 65.4 % (38.0-78.0); Platelet Count 217 K/mcL (140-440); Red Cell Distribution Width 14.7 % (11.5-14.5); WBC 4.1 K/mcL (4.5-11.0)
[2024-06-18 06:55] LABS: ALT/SGPT 9 U/L (<40); AST/SGOT 11 U/L (<40); Albumin 2.9 gm/dL (3.2-5.2); Albumin/Globulin Ratio 0.9 (1.0-2.3); Alkaline Phosphatase 90 U/L (39-117); Bilirubin,Total 0.6 mg/dL (0.1-1.0); Blood Urea Nitrogen 6 mg/dL (6-20); Calcium 8.8 mg/dL (8.6-10.4); Carbon Dioxide 29 mmol/L (22-30); Chloride 99 mmol/L (96-108); Globulin 3.3 gm/dL (2.2-3.7); Glomerular Filtration Rate 150; Glucose 74 mg/dL (70-105); Potassium 3.3 mmol/L (3.3-5.1); Sodium 137 mmol/L (133-145)
[2024-06-18] MEDS ORDERED: ACETIC ACID 0.25% IR SCH (09:00)
[2024-06-18] MEDS: VANCOMYCIN 1,250 MG in 0.9 % SODIUM CHLORIDE 500 ML IV ONE (11:27)
[2024-06-18] MEDS ORDERED: 0.9 % SODIUM CHLORIDE 10 ML SYRINGE IV PRN (11:30)
[2024-06-18] MEDS ORDERED: LIDOCAINE 1% 10 ML VIAL SQ ONE (13:39)
[2024-06-18] MEDS ORDERED: SODIUM CHLORIDE IRRIG SOLUTION 500 ML BOTTLE IRR ONE (13:39)
[2024-06-18] MEDS: POLYETHYLENE GLYCOL 3350 17 GM PACKET PO SCH (15:48)
[2024-06-18] MEDS: 0.9 % SODIUM CHLORIDE 10 ML SYRINGE IV SCH (21:03)
[2024-06-18] MEDS: CALCIUM CARBONATE 500 MG TAB.CHEW CHEWED PRN (21:11)
[2024-06-19 07:31] LABS: Basophils # (Auto) 0.03 K/mcL (0.00-0.30); Basophils % (Auto) 0.7 % (0.0-2.0); Eosinophils # (Auto) 0.12 K/mcL (0.00-0.70); Hematocrit 34.4 % (40.1-51.0); Hemoglobin 10.8 g/dL (13.7-17.5); Lymphocytes # (Auto) 0.55 K/mcL (1.50-4.80); Lymphocytes % (Auto) 13.7 % (15.5-49.0); Mean Corpuscular HGB Conc 31.4 g/dL (31.0-36.0); Mean Platelet Volume 9.2 fL (8.8-12.5); Monocytes # (Auto) 0.55 K/mcL (0.10-0.90); Monocytes % (Auto) 13.7 % (1.0-12.0); Neutrophils % (Auto) 68.9 % (38.0-78.0); Platelet Count 203 K/mcL (140-440); RBC 3.51 M/mcL (4.63-6.08); Red Cell Distribution Width 14.7 % (11.5-14.5)
[2024-06-19 08:05] LABS: ALT/SGPT 7 U/L (<40); AST/SGOT 11 U/L (<40); Albumin 3.1 gm/dL (3.2-5.2); Albumin/Globulin Ratio 0.9 (1.0-2.3); Alkaline Phosphatase 86 U/L (39-117); Bilirubin,Total 0.7 mg/dL (0.1-1.0); Blood Urea Nitrogen 4 mg/dL (6-20); Calcium 8.8 mg/dL (8.6-10.4); Carbon Dioxide 28 mmol/L (22-30); Chloride 96 mmol/L (96-108); Globulin 3.5 gm/dL (2.2-3.7); Glomerular Filtration Rate 150; Glucose 77 mg/dL (70-105); Potassium 3.4 mmol/L (3.3-5.1); Sodium 136 mmol/L (133-145)
[2024-06-19] MEDS: VANCOMYCIN 1,000 MG in 0.9 % SODIUM CHLORIDE 250 ML IV SCH (10:13)
[2024-06-19] MEDS: LINEZOLID 600 MG/300 ML BAG IV SCH (13:44)
[2024-06-20 06:49] LABS: Basophils # (Auto) 0.04 K/mcL (0.00-0.30); Basophils % (Auto) 0.9 % (0.0-2.0); Eosinophils % (Auto) 2.2 % (0.0-7.0); Hematocrit 34.4 % (40.1-51.0); Lymphocytes # (Auto) 0.84 K/mcL (1.50-4.80); Lymphocytes % (Auto) 18.5 % (15.5-49.0); Mean Cell Volume 96.4 fL (80.0-100.0); Mean Platelet Volume 8.9 fL (8.8-12.5); Monocytes % (Auto) 13.2 % (1.0-12.0); Neutrophils % (Auto) 65.2 % (38.0-78.0); Platelet Count 182 K/mcL (140-440); RBC 3.57 M/mcL (4.63-6.08); Red Cell Distribution Width 14.6 % (11.5-14.5); WBC 4.5 K/mcL (4.5-11.0)
[2024-06-20 06:54] LABS: ALT/SGPT 6 U/L (<40); AST/SGOT 9 U/L (<40); Albumin/Globulin Ratio 0.8 (1.0-2.3); Alkaline Phosphatase 78 U/L (39-117); Bilirubin,Total 0.7 mg/dL (0.1-1.0); Blood Urea Nitrogen 2 mg/dL (6-20); Calcium 8.7 mg/dL (8.6-10.4); Carbon Dioxide 31 mmol/L (22-30); Chloride 94 mmol/L (96-108); Globulin 3.6 gm/dL (2.2-3.7); Glomerular Filtration Rate 150; Glucose 80 mg/dL (70-105); Potassium 2.9 mmol/L (3.3-5.1); Sodium 135 mmol/L (133-145)
[2024-06-20] MEDS: POTASSIUM CHLORIDE 20 MEQ TABLET PO ONE (08:02)
[2024-06-20] MEDS: POTASSIUM CHLORIDE 10 MEQ/100 ML BAG IV SCH (08:11)
[2024-06-20] MEDS ORDERED: MAG HYDROX/AL HYDROX/SIMETH 30 ML ORAL.SUSP PT PRN (15:24)
[2024-06-20] MEDS: MAG HYDROX/AL HYDROX/SIMETH 30 ML ORAL.SUSP PO ONE (16:23)
[2024-06-20] MEDS: OMEPRAZOLE 20 MG CAPSULE PO SCH (16:23)
[2024-06-20] MEDS: POTASSIUM CHLORIDE 40 MEQ in DEXTROSE 5% IN WATER 500 ML IV ONE (17:58)
[2024-06-20] MEDS: FAMOTIDINE 20 MG TABLET PO SCH (20:28)
[2024-06-21 06:28] LABS: Basophils # (Auto) 0.04 K/mcL (0.00-0.30); Basophils % (Auto) 0.8 % (0.0-2.0); Eosinophils % (Auto) 1.9 % (0.0-7.0); Hematocrit 37.5 % (40.1-51.0); Hemoglobin 11.9 g/dL (13.7-17.5); Lymphocytes # (Auto) 0.63 K/mcL (1.50-4.80); Lymphocytes % (Auto) 12.3 % (15.5-49.0); Mean Cell Volume 96.6 fL (80.0-100.0); Mean Corpuscular HGB Conc 31.7 g/dL (31.0-36.0); Mean Platelet Volume 8.9 fL (8.8-12.5); Monocytes # (Auto) 0.76 K/mcL (0.10-0.90); Monocytes % (Auto) 14.8 % (1.0-12.0); Platelet Count 190 K/mcL (140-440); RBC 3.88 M/mcL (4.63-6.08); Red Cell Distribution Width 14.5 % (11.5-14.5); WBC 5.1 K/mcL (4.5-11.0)
[2024-06-21 07:03] LABS: ALT/SGPT 5 U/L (<40); AST/SGOT 12 U/L (<40); Albumin 3.2 gm/dL (3.2-5.2); Albumin/Globulin Ratio 0.8 (1.0-2.3); Alkaline Phosphatase 78 U/L (39-117); Blood Urea Nitrogen 2 mg/dL (6-20); Calcium 8.9 mg/dL (8.6-10.4); Carbon Dioxide 34 mmol/L (22-30); Chloride 91 mmol/L (96-108); Globulin 3.8 gm/dL (2.2-3.7); Glomerular Filtration Rate 150; Glucose 71 mg/dL (70-105); Potassium 3.2 mmol/L (3.3-5.1); Sodium 136 mmol/L (133-145)
[2024-06-21] MEDS: POTASSIUM CHLORIDE 20 MEQ TABLET PO ONE (08:35)
[2024-06-21] MEDS: POTASSIUM CHLORIDE 20 MEQ PACKET PO ONE (08:35)
[2024-06-21 11:22] VITALS: TEMP 98.2; O2SAT 97
== END 2024-06-21 14:40 | DRG 729 ==
LOC: ED 10:58 → MEDSUR 17:35
PROVIDERS: ADMIT Student in an Organized Health Care Education/Training Program; ATTEND Student in an Organized Health Care Education/Training Program